=== PATIENT | female | born 1970 | race African-American/Black ===

== ENCOUNTER → 2018-01-06 | Outpatient (CLI) | payer SELFPAY, OTHER | END | disposition home or self-care (01) | LOC: MAMMO 09:00 | DX: Z12.31 Encounter for screening mammogram for malignant neoplasm of breast (principal); N63.10 Unspecified lump in the right breast, unspecified quadrant; M17.11 Unilateral primary osteoarthritis, right knee | CPT/HCPCS: 73562; 77063; 77067 ==

== ENCOUNTER → 2018-01-17 | Outpatient (CLI) | payer BC | END | disposition home or self-care (01) | LOC: US 14:25 | DX: N63.10 Unspecified lump in the right breast, unspecified quadrant (principal) | CPT/HCPCS: 76641 ==

== ENCOUNTER 2018-09-20 07:47 | Emergency (ER) | payer BC ==
[~2018-09-20] VITALS: Ht 160 cm; Wt 113.4 kg
[~2018-09-20 07:47] MED LIST: CIPR500S2 PO; OXYC1TAB22 PO; PHEN-318 PO
[2018-09-20] MEDS ORDERED: IV NORMAL SALINE 1000ML BAG 1,000 ML IV SCH (08:07)
[2018-09-20] MEDS ORDERED: ONDANSETRON PF 4 MG/2 ML VIAL. IV ONE (08:15)
[2018-09-20] MEDS ORDERED: KETOROLAC 30 MG/ML VIAL. IV ONE (08:15)
--- NOTE | 2018-09-20 08:15 | PHYS DOC ---
Past Medical History Past Medical History: Asthma, Hypertension, Kidney Stone Past Surgical History: No Surgical History Alcohol Use: Occasionally Drug Use: None Adult General Chief Complaint Chief Complaint: FLANK PAIN HPI HPI Patient is a 47-year-old female presents to the emergency department for evaluation. She states she was awakened by right flank pain just prior to arrival this morning. She's had some mild nausea but no vomiting. She has not had any dysuria or hematuria. She states that she has had kidney stones in the past, and the pain feels somewhat similar but is in a slightly different location. She denies any abdominal pain. There are no alleviating or exacerbating factors to her symptoms. The pain did start suddenly this morning. The pain does not radiate. It is located in her right flank. Review of Systems Review of Systems Constitutional: Denies fever or chills [] Eyes: Denies change in visual acuity, redness, or eye pain [] HENT: Denies nasal congestion or sore throat [] Respiratory: Denies cough or shortness of breath. Denies pleuritic chest pain, or worsening of her flank pain with deep breathing. [] Cardiovascular: The patient denies any shortness of breath, chest pain, palpitations, or orthopnea[] GI: Denies abdominal pain, nausea, vomiting, bloody stools or diarrhea [] : Denies dysuria or hematuria [] Musculoskeletal: Denies back pain or joint pain [] Integument: Denies rash or skin lesions [] Neurologic: Denies headache, focal weakness or sensory changes [] Endocrine: Denies polyuria or polydipsia [] All other systems were reviewed and found to be within normal limits, except as documented in this note. Current Medications Current Medications Current Medications Medications (Trade) Dose Ordered Sig/Hu Start Time Stop Time Status Last Admin Dose Admin Ketorolac Tromethamine (Toradol 30mg Vial) 30 mg 1X ONCE 09/20/18 08:15 09/20/18 08:16 DC 09/20/18 08:29 30 MG Ondansetron HCl (Zofran) 4 mg 1X ONCE 09/20/18 08:15 09/20/18 08:16 DC 09/20/18 08:28 4 MG Sodium Chloride 1,000 ml @ 1,000 mls/hr Q1H 09/20/18 08:07 09/20/18 09:06 DC 09/20/18 08:29 1,000 MLS/HR Allergies Allergies Allergies Coded Allergies Type Severity Reaction Last Updated Verified No Known Drug Allergies 08/16/14 No Physical Exam Physical Exam PHYSICAL EXAM: CONSTITUTIONAL: Well developed, well nourished HEAD: normocephalic, atraumatic EENT: PERRL, EOMI. Conjunctivae normal color, sclerae non-icteric; moist mucous membranes. NECK: Supple, non-tender; no meningismus. LUNGS: Lungs CTA, breathing even and unlabored. Normal air movement. HEART: Regular rate and rhythm, no murmur CHEST: No deformity; non-tender ABDOMEN: The abdomen is soft, and non-tender, no masses or bruits. There is no right upper quadrant tenderness to palpation. EXTREM: Normal ROM; no deformity, no calf tenderness. Normal pulses palpable in all extremities. There is no pedal edema. SKIN: No rash; no diaphoresis NEURO: Alert; normal speech and cognition; CN's grossly intact; strength grossly intact without focal deficit. 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 Current Patient Data Vital Signs Vital Signs Date Time Temp Pulse Resp B/P (MAP) Pulse Ox O2 Delivery O2 Flow Rate FiO2 09/20/18 08:06 98.1 95 18 158/86 (110) 10 Room Air 98.1 Lab Values Laboratory Tests Test 09/20/18 08:00 09/20/18 08:07 09/20/18 08:21 Urine Collection Type Unknown Urine Color Yellow Urine Clarity Clear Urine pH 7.5 Urine Specific [place] 1.015 Urine Protein Negative mg/dL (NEG-TRACE) Urine Glucose (UA) Negative mg/dL (NEG) Urine Ketones (Stick) Negative mg/dL (NEG) Urine Blood Moderate (NEG) Urine Nitrite Negative (NEG) Urine Bilirubin Negative (NEG) Urine Urobilinogen Dipstick 0.2 mg/dL (0.2 mg/dL) Urine Leukocyte Esterase Negative (NEG) Urine RBC 6-10 /HPF (0-2) Urine WBC Occ /HPF (0-4) Urine Squamous Epithelial Cells Few /LPF Urine Bacteria Few /HPF (0-FEW) White Blood Count 10.5 x10^3/uL (4.0-11.0) Red Blood Count 4.91 x10^6/uL (3.50-5.40) Hemoglobin 13.9 g/dL (12.0-15.5) Hematocrit 42.3 % (36.0-47.0) Mean Corpuscular Volume 86 fL (79-100) Mean Corpuscular Hemoglobin 28 pg (25-35) Mean Corpuscular Hemoglobin Concent 33 g/dL (31-37) Red Cell Distribution Width 13.8 % (11.5-14.5) Platelet Count 271 x10^3/uL (140-400) Neutrophils (%) (Auto) 78 % (31-73) H Lymphocytes (%) (Auto) 15 % (24-48) L Monocytes (%) (Auto) 7 % (0-9) Eosinophils (%) (Auto) 1 % (0-3) Basophils (%) (Auto) 0 % (0-3) Neutrophils # (Auto) 8.1 x10^3uL (1.8-7.7) H Lymphocytes # (Auto) 1.6 x10^3/uL (1.0-4.8) Monocytes # (Auto) 0.7 x10^3/uL (0.0-1.1) Eosinophils # (Auto) 0.1 x10^3/uL (0.0-0.7) Basophils # (Auto) 0.0 x10^3/uL (0.0-0.2) Sodium Level 139 mmol/L (136-145) Potassium Level 4.0 mmol/L (3.5-5.1) Chloride Level 103 mmol/L (98-107) Carbon Dioxide Level 27 mmol/L (21-32) Anion Gap 9 (6-14) Blood Urea Nitrogen 10 mg/dL (7-20) Creatinine 0.9 mg/dL (0.6-1.0) Estimated GFR (Cockcroft-Gault) 81.9 BUN/Creatinine Ratio 11 (6-20) Glucose Level 94 mg/dL (70-99) Calcium Level 8.9 mg/dL (8.5-10.1) Total Bilirubin 0.6 mg/dL (0.2-1.0) Aspartate Amino Transferase (AST) 18 U/L (15-37) Alanine Aminotransferase (ALT) 20 U/L (14-59) Alkaline Phosphatase 80 U/L (46-116) Total Protein 8.3 g/dL (6.4-8.2) H Albumin 3.4 g/dL (3.4-5.0) Albumin/Globulin Ratio 0.7 (1.0-1.7) L Lipase 95 U/L (73-393) POC Urine HCG, Qualitative Hcg negative (Negative) Laboratory Tests 09/20/18 08:07 Laboratory Tests 09/20/18 08:07 EKG EKG [] Radiology/Procedures Radiology/Procedures [PROCEDURE: CT ABDOMEN PELVIS WO CONTRAST CT of the abdomen and pelvis without contrast, 09/20/2018: HISTORY: Right flank pain, kidney stones Noncontrast scans were obtained utilizing the renal stone protocol. There are multiple bilateral intrarenal calculi. The largest of these on both sides measure approximately 7-8 mm. The left renal collecting system and ureter are unremarkable. The right renal pelvis and proximal right ureter are slightly prominent. No radiopaque calculus is seen in the right ureter. The partially filled urinary bladder is unremarkable. The unopacified liver is unremarkable. No gallbladder abnormality is seen. The pancreas shows no abnormality. The spleen is of normal size. The abdominal aorta is unremarkable. No abdominal or pelvic adenopathy is seen. There is a small lobulated nodule arising from the left posterior lateral margin of the uterus, most likely representing an exophytic fibroid. Colonic diverticula are noted. No paracolonic inflammatory process is seen. A portion of the appendix is visualized and it shows no evidence of inflammation. No free fluid or free air is evident in the abdomen or pelvis. IMPRESSION: 1. Small bilateral nonobstructing intrarenal calculi. 2. Slight dilatation of the right renal pelvis and proximal right ureter without current evidence of a radiopaque ureteral calculus. This may represent the residual effects of a recently passed calculus. 3. Colonic diverticulosis. 4. Fibroid uterus.] Course & Med Decision Making Course & Med Decision Making Pertinent Labs and Imaging studies reviewed. (See chart for details) [10:00 AM:] The patient's condition remains a stable. She is feeling significantly better at this time and her pain has resolved. I discussed test results with the patient, the need for close follow-up with urology, and return precautions. Dragon Disclaimer Dragon Disclaimer This electronic medical record was generated, in whole or in part, using a voice recognition dictation system. Departure Departure Impression: Primary Impression: Kidney stone Additional Impression: Flank pain Disposition: HOME, SELF-CARE Condition: STABLE Referrals: Bailee OLIVERA MD (PCP) ANITHA DUBON MD Patient Instructions: Diet for Kidney Stones, Flank Pain, Kidney Stones Scripts [ketorolac] No Conflict Check 10 MG PO Q6H PRN for PAIN, #30 Prov: SMITA RAYA MD 09/20/18 Problem Qualifiers SMITA RAYA MD Sep 20, 2018 08:15
[2018-09-20 08:20] LABS: BASO % 0 % (0-3); EOS # 0.1 x10^3/uL (0.0-0.7); EOS % 1 % (0-3); HEMATOCRIT 42.3 % (36.0-47.0); HEMOGLOBIN 13.9 g/dL (12.0-15.5); LYMPH # 1.6 x10^3/uL (1.0-4.8); LYMPH % 15 % (24-48); MEAN CORPUSCULAR HEMOGLOBIN 28 pg (25-35); MEAN CORPUSCULAR HGB CONC 33 g/dL (31-37); MEAN CORPUSCULAR VOLUME 86 fL (79-100); MONO # 0.7 x10^3/uL (0.0-1.1); MONO % 7 % (0-9); NEUT # 8.1 x10^3uL (1.8-7.7); NEUT % 78 % (31-73); PLATELET COUNT 271 x10^3/uL (140-400); RED BLOOD COUNT 4.91 x10^6/uL (3.50-5.40); RED CELL DISTRIBUTION WIDTH 13.8 % (11.5-14.5); WHITE BLOOD COUNT 10.5 x10^3/uL (4.0-11.0)
[2018-09-20 08:20] LABS: BILIRUBIN,URINE NEGATIVE (NEG); CLARITY,URINE CLEAR; COLOR,URINE YELLOW; NITRITE,URINE NEGATIVE (NEG); PH,URINE 7.5; PROTEIN,URINE NEGATIVE (NEG-TRACE); UROBILINOGEN,URINE 0.2 mg/dL (0.2 mg/dL)
[2018-09-20 08:39] LABS: CALCIUM 8.9 mg/dL (8.5-10.1); CREATININE 0.9 mg/dL (0.6-1.0); GFR 81.9
[2018-09-20 08:45] LABS: SQUAMOUS EPITHELIAL CELL,UR FEW /LPF; WBC,URINE OCC /HPF (0-4)
[2018-09-20 08:45] LABS: ALBUMIN 3.4 g/dL (3.4-5.0); ALBUMIN/GLOBULIN RATIO 0.7 (1.0-1.7); TOTAL BILIRUBIN 0.6 mg/dL (0.2-1.0); TOTAL PROTEIN 8.3 g/dL (6.4-8.2)
[2018-09-20 08:46] LABS: BACTERIA,URINE FEW /HPF (0-FEW)
--- NOTE | 2018-09-20 09:57 | RAD ---
CT of the abdomen and pelvis without contrast, 09/20/2018: HISTORY: Right flank pain, kidney stones Noncontrast scans were obtained utilizing the renal stone protocol. There are multiple bilateral intrarenal calculi. The largest of these on both sides measure approximately 7-8 mm. The left renal collecting system and ureter are unremarkable. The right renal pelvis and proximal right ureter are slightly prominent. No radiopaque calculus is seen in the right ureter. The partially filled urinary bladder is unremarkable. The unopacified liver is unremarkable. No gallbladder abnormality is seen. The pancreas shows no abnormality. The spleen is of normal size. The abdominal aorta is unremarkable. No abdominal or pelvic adenopathy is seen. There is a small lobulated nodule arising from the left posterior lateral margin of the uterus, most likely representing an exophytic fibroid. Colonic diverticula are noted. No paracolonic inflammatory process is seen. A portion of the appendix is visualized and it shows no evidence of inflammation. No free fluid or free air is evident in the abdomen or pelvis. IMPRESSION: 1. Small bilateral nonobstructing intrarenal calculi. 2. Slight dilatation of the right renal pelvis and proximal right ureter without current evidence of a radiopaque ureteral calculus. This may represent the residual effects of a recently passed calculus. 3. Colonic diverticulosis. 4. Fibroid uterus. PQRS Compliance Statement: One or more of the following individualized dose reduction techniques were utilized for this examination: 1. Automated exposure control 2. Adjustment of the mA and/or kV according to patient size 3. Use of iterative reconstruction technique Electronically signed by: Eugene Miller MD (09/20/2018 9:53 AM) [facility]
[2018-09-20] MEDS ORDERED: ketorolac PO (10:07)
[2018-09-20 10:53] VITALS: BP 130/61
== END 2018-09-20 10:59 | disposition home or self-care (01) ==
LOC: ER 07:47
DX: N20.0 Calculus of kidney (principal); K57.30 Diverticulosis of large intestine without perforation or abscess without bleeding; D25.9 Leiomyoma of uterus, unspecified; I10 Essential (primary) hypertension; J45.909 Unspecified asthma, uncomplicated
CPT/HCPCS: 36415; 74176; 80053; 81001; 81025; 83690; 85025; 96374; 96375; 99284; J1885; J2405; J7030; 96361

== ENCOUNTER → 2021-02-05 | Outpatient (CLI) | payer BC, OTHER ==
[~2021-02-05] MED LIST changes: +ketorolac PO
--- NOTE | 2021-02-05 12:46 | RAD ---
EXAM: Bilateral digital screening mammogram with tomosynthesis. HISTORY: 50-year-old female presents for screening mammography. TECHNIQUE: Full-field digital craniocaudal and mediolateral oblique 2D and 3D tomosynthesis images of both breasts are obtained for evaluation. Computer aided detection was applied. COMPARISON: 01/06/2018 BREAST PARENCHYMAL DENSITY: Level C - Heterogeneously dense. FINDINGS: There is no new suspicious mass, microcalcification or region of architectural distortion. There is stable benign circumscribed nodules within the right breast. IMPRESSION: BI-RADS Category 2: Benign finding(s). RECOMMENDATION: Annual mammography is recommended. If your mammogram demonstrates that you have dense breast tissue, which could hide abnormalities, and if you have other risk factors for breast cancer that have been identified, you might benefit from s upplemental screening tests that may be suggested by your ordering physician. Dense breast tissue, i n and of itself, is a relatively common condition. This information is not provided to cause undue c oncern, but rather to raise your awareness and to promote discussion with your physician regarding th e presence of other risk factors, in addition to dense breast tissue. A report of your mammography re sults will be sent to you and your physician. You should contact your physician if you have any ques tions or concerns regarding this report. Mammography is a sensitive method for finding small breast cancers, but it does not detect them all a nd is not a substitute for careful clinical examination. A negative mammogram does not negate a clin ically suspicious finding and should not result in delay in biopsying a clinically suspicious abnorma lity. PQRS compliance statement - Patient information was entered into a reminder system with a target due date for the next mammogram. "Our facility is accredited by the [employer] Mammography Program." Electronically signed by: Betty Cuevas MD (02/05/2021 12:44 PM) [id number]
== END ==
LOC: MAMMO 09:49
PROVIDERS: ATTEND Family Medicine
DX: Z12.31 Encounter for screening mammogram for malignant neoplasm of breast (principal)
CPT/HCPCS: 77063; 77067